=== PATIENT | female | born 1930 | race Asian ===

== ENCOUNTER 2018-07-21 18:56 | Emergency (ER) | payer OTHER ==
[~2018-07-21] VITALS: Ht 152.4 cm; Wt 37.0 kg
[2018-07-21] MEDS ORDERED: AMLO-511 PO (19:28)
[2018-07-21] MEDS ORDERED: ALEN70SO3 PO (19:28)
[2018-07-21] MEDS ORDERED: FOLI1 PO (19:29)
[2018-07-21] MEDS ORDERED: FERR-89 PO (19:29)
[2018-07-21] MEDS ORDERED: ALEN70TA48 PO (19:32)
[2018-07-21 19:36] LABS: HEMATOCRIT 34.7 % (36-46); HEMOGLOBIN 11.7 g/dL (12.0-16.0); MEAN CORPUSCULAR HEMOGLOBIN 33.9 pg (26.0-34.0); MEAN CORPUSCULAR HGB CONC 33.8 G/dL (31.0-37.0); MEAN CORPUSCULAR VOLUME 100 fL (80-100); PLATELET COUNT (AUTO) 154 K/uL (150-450); RED BLOOD CELL COUNT(AUTO) 3.46 MIL/uL (4.00-5.20)
[2018-07-21 19:47] LABS: ANION GAP 7 mmol/L (8-16); CALCIUM, TOTAL 9.2 mg/dL (8.8-10.5); CARBON DIOXIDE 28 mmol/L (22-29); CHLORIDE 103 mmol/L (98-107); CREATININE 0.68 mg/dL (0.60-1.30); GLUCOSE,RANDOM 124 mg/dL (70-110); POTASSIUM 4.1 mmol/L (3.5-5.1); SODIUM SERUM 138 mmol/L (136-145); UREA NITROGEN, BLOOD 31 mg/dL (7-18)
[2018-07-21 19:50] LABS: GLOMERULAR FILTR. RATE CALC > 60 mL/min (>60)
[2018-07-21 19:53] LABS: ALANINE AMINOTRANSFERASE 26 U/L (12-78); ALBUMIN 3.8 g/dL (3.4-5.0); ALKALINE PHOSPHATASE 48 U/L (46-116); ASPARTATE AMINOTRANSFERASE 24 U/L (15-37); BILIRUBIN,TOTAL 0.4 mg/dL (0.1-1.0); LIPASE 219 U/L (73-393); TOTAL PROTEIN, SERUM 8.1 g/dL (6.4-8.2)
[2018-07-21] MEDS ORDERED: FAMOTIDINE 10 MG/ML 2 ML VIAL IVP ONE (20:00)
[2018-07-21] MEDS ORDERED: SODIUM CHLORIDE 0.9% 500 ML IV ONE (20:00)
[2018-07-21] MEDS ORDERED: ONDANSETRON HCL 4 MG/2 ML VIAL IVP ONE (20:00)
[2018-07-21 20:17] LABS: BAND NEUTROPHILS % (MANUAL) 48 % (0-5); LYMPHOCYTES % (MANUAL) 7 % (22-44); MONOCYTES % (MANUAL) 5 % (2-9); SEGMENTED NEUTROPHILS % 40 % (40-70)
[2018-07-21 21:13] LABS: APPEARANCE,URINE CLEAR (CLEAR); BILIRUBIN,URINE NEGATIVE (NEGATIVE); GLUCOSE, URINE (UA) NEGATIVE (NEGATIVE); KETONES,URINE 15 mg/dL (NEGATIVE); LEUKOCYTE ESTERASE ,URINE NEGATIVE (NEGATIVE); NITRATE,URINE NEGATIVE (NEGATIVE); OCCULT BLOOD,URINE NEGATIVE (NEGATIVE); PROTEIN,URINE TRACE (NEGATIVE); UROBILINOGEN,URINE 0.2 mg/dL (<=1.0)
[2018-07-21 22:50] VITALS: BP 122/70
== END 2018-07-21 23:00 | disposition home or self-care (01) ==
LOC: EMS 18:57 → EDBD 18:57 → EMS 23:00
DX: R11.10 Vomiting, unspecified (principal); R19.7 Diarrhea, unspecified
CPT/HCPCS: 36415; 74022; 80053; 81003; 82962; 83690; 84484; 85025; 93005; 96374; 96375; 99285; J2405; J3490; J7040; 51702